=== PATIENT | female | born 1950 | race Caucasian/White ===

== ENCOUNTER 2021-06-13 14:31 | Emergency (ER) | payer MEDICARE, SELFPAY ==
--- NOTE | 2021-06-13 14:55 | PC.NURSE ---
pt came to intake - states doesn't want to wait anymore . Left the ER waiting room with steady gait.
== END 2021-06-13 14:55 | disposition left against medical advice (07) ==
LOC: ANHED 15:03
DX: Z53.21 Procedure and treatment not carried out due to patient leaving prior to being seen by health care provider (principal)
CPT/HCPCS: 99199